=== PATIENT | female | born 1980 | race Caucasian/White ===

== ENCOUNTER 2018-08-20 14:38 | Emergency (ER) | payer MEDICAID ==
[~2018-08-20] VITALS: Ht 160 cm; Wt 75.0 kg
[~2018-08-20 14:38] MED LIST: CALC300T4 PO; CARB15DR4 EACHEYE; EST1T PO; GEMF600T89 PO; GUAN1TAB PO; LEVO100T46 PO; OMEP40CA37 PO; PRO2.5T PO; TEG100T PO
[2018-08-20 15:35] LABS: BASOPHILS % (AUTO) 0.2 % (0-1); EOSINOPHILS % (AUTO) 0.3 % (0-6); HEMATOCRIT 33.1 % (35.0-45.0); HEMOGLOBIN 11.1 g/dl (12.0-16.0); LYMPHOCYTES # (AUTO) 1.1 X10'3 (1.1-4.8); LYMPHOCYTES % (AUTO) 37.3 % (21-51); MEAN CORPUSCULAR HEMOGLOBIN 29.7 PG (27.0-31.0); MEAN CORPUSCULAR HGB CONC 33.6 % (33.0-36.5); MEAN CORPUSCULAR VOLUME 88.3 FL (78-98); MEAN PLATELET VOLUME 6.8 FL (7.4-10.4); MONOCYTES # (AUTO) 0.4 X10'3 (0-0.9); MONOCYTES % (AUTO) 11.9 % (2-12); NEUTROPHILS # (AUTO) 1.5 X10'3 (1.8-7.7); NEUTROPHILS % (AUTO) 50.3 % (42-75); PLATELET COUNT 297 X10'3 (140-440); RED BLOOD COUNT 3.75 X10'6 (4.20-5.60); RED CELL DISTRIBUTION WIDTH 12.5 % (11.5-14.5)
[2018-08-20 15:39] LABS: ALANINE AMINOTRANSFERASE 17 U/L (12-78); ALBUMIN 3.3 G/DL (3.4-5.0); ALBUMIN/GLOBULIN RATIO 1.1 (1.1-1.5); ALKALINE PHOSPHATASE 97 IU/L (46-116); ANION GAP 9 (8-16); ASPARTATE AMINO TRANSFERASE 12 U/L (10-37); BILIRUBIN,TOTAL 0.2 MG/DL (0.1-1.0); BLOOD UREA NITROGEN 15 MG/DL (7-18); BUN/CREATININE RATIO 20.8 (6.6-38.0); CHLORIDE 101 MMOL/L (99-107); CREATININE 0.72 MG/DL (0.40-0.90); GLUCOSE 132 MG/DL (70-104); POTASSIUM 3.8 MMOL/L (3.5-5.1); SODIUM 135 MMOL/L (135-145); TOTAL CARBON DIOXIDE 25.4 MMOL/L (24-32); TOTAL PROTEIN 6.3 G/DL (6.4-8.2); eGFR 90 ML/MIN
[2018-08-20 15:56] VITALS: BP 139/70
== END 2018-08-20 16:58 | disposition home or self-care (01) ==
LOC: ER 14:38
DX: S06.0X9A Concussion with loss of consciousness of unspecified duration, initial encounter (principal); S00.03XA Contusion of scalp, initial encounter; E78.00 Pure hypercholesterolemia, unspecified; K21.9 Gastro-esophageal reflux disease without esophagitis; E03.9 Hypothyroidism, unspecified; Z90.710 Acquired absence of both cervix and uterus; Z79.899 Other long term (current) drug therapy; W18.39XA Other fall on same level, initial encounter; Y93.89 Activity, other specified; Y92.89 Other specified places as the place of occurrence of the external cause; Y99.8 Other external cause status
CPT/HCPCS: 36415; 70450; 71045; 72125; 80053; 84484; 85025; 93005; 99284

== ENCOUNTER 2025-04-22 11:27 | Outpatient (CLI) | payer MEDICARE, MEDICAID ==
[~2025-04-22 11:27] MED LIST changes: -GUAN1TAB PO; +GUAN1TAB62 PO; +OMEP40CA21 PO; -OMEP40CA37 PO
--- NOTE | 2025-04-22 21:04 | RADIOLOGY REPORT ---
EXAM: CT CT FACIAL BONES/SOFT TISSUE INDICATION: OTHER SPECIFIED DISORDERS OF NOSE AND NASAL SINUSES EXAM DATE: 04/22/2025 11:44 AM COMPARISON: None TECHNIQUE: Multiple axial CT images of the maxilla and face were obtained using bone algorithm. Axial and coronal reformatting was done. Bone and soft tissue windows were reviewed. Radiation Dose Information: CT Dose: CTDI volume is 54.49 mGy. Dose-length product is 960.29 mGy*cm Findings: There is no evidence of an acute fracture or traumatic subluxations. No evidence of lytic, blastic, or osseous destructive lesions. Mucoperiosteal thickening of the nasal turbinates and ethmoid sinuses. The remaining paranasal sinuses, middle ear cavities, and mastoid air cells are normally aerated. The globes and orbits are within normal limits. The nasal septum, nasopharynx, and oropharynx are grossly unremarkable. Mild narrowing of the right choana. The paraspinal and neck soft tissues appear within normal limits. Impression: 1. No acute osseous abnormalities. 2. Mild narrowing of the right choana. 3. Mucoperiosteal thickening of the nasal turbinates and ethmoid sinuses.
== END 2025-04-22 23:59 | disposition home or self-care (01) ==
LOC: RAD 11:27
PROVIDERS: ATTEND Family Medicine
DX: J34.89 Other specified disorders of nose and nasal sinuses (principal); J32.2 Chronic ethmoidal sinusitis
CPT/HCPCS: 70486